=== PATIENT | female | born 1995 | race American Indian/Alaskan Native ===

== ENCOUNTER 2017-01-21 21:25 | Emergency (ER) | payer OTHER ==
--- NOTE | 2017-01-21 23:06 | XRay Report ---
FINAL REPORT EXAM: XR HAND 3+V RT HISTORY: RIGHT HAND INJURY . Patient hit a wall with the right hand TECHNIQUE: AP, lateral, and oblique views of the right hand PRIORS: None. FINDINGS: There is no evidence for acute fracture or dislocation. No soft tissue swelling or radiopaque foreign bodies are seen. Bony mineralization is normal and joint spaces are maintained. IMPRESSION: No acute bony or soft tissue abnormality noted.
[2017-01-21 23:07] LABS: Bacteria,Urine 2+ /HPF (Negative); Bilirubin,Urine NEG (Negative); Blood,Urine NEG (Negative); Ketones,Urine 20 mg/dL (Negative); Leukocyte Esterase,Urine LG (Negative); Mucus,Urine 2+ /HPF; Nitrite,Urine NEG (Negative); Urobilinogen,Urine < 2.0 mg/dL (<2.0)
[2017-01-21] MEDS ORDERED: ZOFRAN IM ONE (23:54)
[2017-01-21] MEDS ORDERED: MORPHINE IM ONE (23:54)
--- NOTE | 2017-01-21 23:59 | Emergency Department Report ---
ED Upper Extremity Inj HPI - General Chief Complaint: Extremity Injury, Upper Stated Complaint: HAND PAIN Time Seen by Provider: 01/21/17 23:26 Source: patient Mode of arrival: Ambulatory Limitations: No Limitations - History of Present Illness Initial Comments: Patient stated that she got angry and hit a wall, she is complaining of right hand pain. No other injuries. Complaint: Injury to:: right -: This evening Other Extremity Injury: Hand: Right Other Injuries: none Handedness: right Place: home Severity scale (0 -10): 7 Improves With: immobilization Context: direct blow Associated Symptoms: denies other symptoms - Related Data Allergies Allergy/AdvReac Type Severity Reaction Status Date / Time aspirin Allergy Rash Verified 01/21/17 21:55 ED Review of Systems ROS: Stated complaint: HAND PAIN Other details as noted in HPI Comment: All other systems reviewed and negative Constitutional: denies: chills ENT: denies: ear pain Respiratory: denies: cough Cardiovascular: denies: chest pain Musculoskeletal: denies: back pain ED Past Medical Hx - Past Medical History Previous Medical History?: No - Surgical History Past Surgical History?: No - Social History Smoking Status: Unknown if ever smoked Substance Use Type: None ED Physical Exam - General Limitations: No Limitations General appearance: alert, in no apparent distress - Head Head exam: Present: atraumatic - Neck Neck exam: Present: normal inspection. Absent: tenderness - Respiratory Respiratory exam: Present: normal lung sounds bilaterally - Cardiovascular Cardiovascular Exam: Present: regular rate, normal heart sounds - GI/Abdominal GI/Abdominal exam: Absent: tenderness, guarding - Expanded Upper Extremity Exam Right Hand Wrist exam: Present: full ROM, tenderness, swelling. Absent: abrasion, laceration, ecchymosis, deformity, crepidus, dislocation, erythema, amputation, nail avulsion, subungual hematoma ED Course Vital Signs 01/21/17 01/21/17 21:36 21:53 Temperature 99.0 F 98 F Pulse Rate 111 H 110 H Respiratory 18 18 Rate Blood Pressure 122/77 127/77 O2 Sat by Pulse 98 99 Oximetry ED Medical Decision Making - Radiology Data Radiology results: report reviewed Right hand x-ray showed no acute fracture or dislocation. Critical care attestation.: If time is entered above; I have spent that time in minutes in the direct care of this critically ill patient, excluding procedure time. ED Disposition Clinical Impression: Contusion of right hand Disposition: DC-01 TO HOME OR SELFCARE Is pt being admited?: No Condition: Stable Instructions: Contusion in Adults (ED)
[2017-01-22 00:28] VITALS: BP 114/70
== END 2017-01-22 00:36 | disposition home or self-care (01) ==
LOC: ED 21:25
DX: S60.221A Contusion of right hand, initial encounter (principal); Z88.6 Allergy status to analgesic agent; W22.01XA Walked into wall, initial encounter; Y93.9 Activity, unspecified; Y99.8 Other external cause status; Y92.009 Unspecified place in unspecified non-institutional (private) residence as the place of occurrence of the external cause
CPT/HCPCS: 73130; 81001; 81025; 96372; 99283; J2270; J2405